=== PATIENT | male | born 2000 | race African-American/Black ===

== ENCOUNTER 2019-11-21 06:04 | Emergency (ER) | payer MEDICAID ==
[~2019-11-21] VITALS: Ht 182.9 cm; Wt 104.3 kg
[2019-11-21 07:58] VITALS: BP 139/71
[2019-11-21] MEDS ORDERED: AZITHROMYCIN 250 MG TAB PO ONE (08:30)
[2019-11-21] MEDS ORDERED: cefTRIAXone SODIUM 250 MG VL IM ONE (08:30)
== END 2019-11-21 09:04 | disposition home or self-care (01) ==
LOC: ER 06:04
DX: N39.0 Urinary tract infection, site not specified (principal); Z20.2 Contact with and (suspected) exposure to infections with a predominantly sexual mode of transmission
CPT/HCPCS: 81002; 96372; 99283; J0696

== ENCOUNTER 2020-07-22 18:11 | Emergency (ER) | payer MEDICAID, OTHER ==
[~2020-07-22] VITALS: Ht 182.9 cm; Wt 104.3 kg
[2020-07-22] MEDS ORDERED: ONDANSETRON HCL 4 MG/2 ML VIAL IV ONE ×2 (18:30)
[2020-07-22] MEDS ORDERED: MIDAZOLAM HCL 5 MG/ML-1ML VIAL IV ONE (18:30)
[2020-07-22] MEDS ORDERED: fentaNYL CITRATE 100 MCG/2 ML VL IV ONE (18:30)
[2020-07-22] MEDS ORDERED: MORPHINE SULFATE 4 MG/ML SYR/VIAL IV ONE ×2 (18:30)
[2020-07-22 21:00] VITALS: BP 100/70
== END 2020-07-22 21:07 | disposition home or self-care (01) ==
LOC: EDBD 18:11 → ER 18:15 → MERGE 18:15 → ER 21:07
DX: S43.005A Unspecified dislocation of left shoulder joint, initial encounter (principal); F17.210 Nicotine dependence, cigarettes, uncomplicated; W21.05XA Struck by basketball, initial encounter; Y93.67 Activity, basketball; Y92.39 Other specified sports and athletic area as the place of occurrence of the external cause; Y99.8 Other external cause status
CPT/HCPCS: 73020; 73030; 96374; 96375; 99285; J2250; J2270; J2405; J3010